=== PATIENT | male | born 1945 | race Caucasian/White ===

== ENCOUNTER → 2016-10-08 | Day surgery (SDC) | payer MEDICARE, OTHER ==
[~2016-10-08] MED LIST: ASPI-482 PO; CALC-584 PO; DORZ10DR21 EACHEYE; IV RINGERS,LACTATED 1000ML 1,000 ML IV SCH; MULT-208 PO; OMEG500C PO; PHENYLEPHRINE in 0.9% NACL PF 1 MG/10 ML DISP.SYRIN. IV ONE; POLY255P PO; PROPOFOL 20 ML IV ONE; RANI150C PO; SIMV20TA3 PO
[2016-10-08 13:23] VITALS: BP 109/64
--- NOTE | 2016-10-09 06:04 | HP ---
ADMIT DATE: 10/08/2016 REFERRING PHYSICIAN: Dr. Ramon Godfrey. HISTORY OF PRESENT ILLNESS: A 71-year-old male with past medical history significant for hemorrhoidectomy, constipation, hyperlipidemia, gastroesophageal reflux disease, family history of colon cancer with his sister, seen for interval exam. His last exam was approximately 8 years ago, which was unrevealing at that time. No change in bowel habits, no bleeding recently, no change in weight or appetite. He has otherwise been in good health. PAST MEDICAL HISTORY: Status post hemorrhoidectomy, multiple eye surgeries, osteoporosis, hyperlipidemia, gastroesophageal reflux disease. ALLERGIES: None. MEDICATIONS: Include aspirin, calcium, Cosopt eyedrops, multivitamins, omega-3, polyethylene glycol, ranitidine, simvastatin. FAMILY AND SOCIAL HISTORY: Significant for colon cancer with his sister. He does not drink or smoke. He is retired from ____ [employer] REVIEW OF SYSTEMS: Per records. PHYSICAL EXAMINATION: GENERAL: Reveals a well-nourished, well-developed male who is alert, conversant, in no acute distress. VITAL SIGNS: Temp is 97.5, pulse 72, respiratory rate is 20. HEENT: Reveals normocephalic, atraumatic head. Pupils and extraocular movements not tested. Sclerae anicteric. NECK: Supple. LUNGS: Clear. CARDIOVASCULAR: Reveals an S1, S2 without S3, S4 or appreciable murmur. ABDOMEN: Reveals a soft abdomen, normal bowel sounds, without appreciable hepatosplenomegaly. EXTREMITIES: Reveal no cyanosis, clubbing or edema. IMPRESSION: Colorectal screening with positive family history of colon cancer is recommended at this time. Risks and benefits of the procedure including the risk of hemorrhage or perforation at the time of operation have been discussed. The patient is willing to proceed. I would like to thank Dr. Godfrey for allowing us to consult and participate in this patient's care. CORBIN NUÑEZ MD DR: OMAYRA/jennifer JOB#: [id number] / [id number]
== END | disposition home or self-care (01) ==
LOC: ENDOS 11:30
PROVIDERS: ATTEND Internal Medicine Gastroenterology
DX: Z12.11 Encounter for screening for malignant neoplasm of colon (principal); Z80.0 Family history of malignant neoplasm of digestive organs; K64.0 First degree hemorrhoids; K57.30 Diverticulosis of large intestine without perforation or abscess without bleeding
CPT/HCPCS: 99156; G0105; J2370; J2704

== ENCOUNTER → 2019-08-08 | Day surgery (SDC) | payer MEDICARE ==
[~2019-08-08] MED LIST changes: +FAMO40TA4 PO; +LIDOCAINE 2% PF 5 ML VIAL. ONE; +LOSA-73 PO; -PHENYLEPHRINE in 0.9% NACL PF 1 MG/10 ML DISP.SYRIN. IV ONE; -POLY255P PO; +POLY255P11 PO; +SIMV20TA18 PO; -SIMV20TA3 PO
[2019-08-08 16:32] VITALS: BP 123/61
== END ==
LOC: ENDOS 15:00
PROVIDERS: ATTEND Internal Medicine Gastroenterology
DX: R13.10 Dysphagia, unspecified (principal); K22.2 Esophageal obstruction; K21.9 Gastro-esophageal reflux disease without esophagitis; I10 Essential (primary) hypertension; E78.00 Pure hypercholesterolemia, unspecified; F15.90 Other stimulant use, unspecified, uncomplicated; Z87.39 Personal history of other diseases of the musculoskeletal system and connective tissue; Z98.52 Vasectomy status
CPT/HCPCS: 43235; 43450; J2001; J2704

== ENCOUNTER 2021-06-18 15:41 | Emergency (ER) | payer MEDICARE ==
[2019-08-08 16:32] VITALS: BP 123/61
[~2021-06-18 15:41] MED LIST changes: -IV RINGERS,LACTATED 1000ML 1,000 ML IV SCH; -LIDOCAINE 2% PF 5 ML VIAL. ONE; -PROPOFOL 20 ML IV ONE
== END 2021-06-18 15:53 | disposition left against medical advice (07) ==
LOC: ER 15:41
DX: M54.9 Dorsalgia, unspecified (principal); Z53.21 Procedure and treatment not carried out due to patient leaving prior to being seen by health care provider